=== PATIENT | female | born 1985 | race Caucasian/White ===

== ENCOUNTER 2017-07-11 09:52 | Inpatient (IN) | payer MEDICAID ==
[~2017-07-11] VITALS: Ht 160 cm; Wt 125.0 kg
[~2017-07-11 09:52] MED LIST: NONE PER PT
[2017-07-14] MEDS ORDERED: OXYTOCIN 30U/ 0.9% NaCL 500ML 500 ML IV PRN (21:25)
[2017-07-14] MEDS ORDERED: OXYTOCIN 30U/ 0.9% NaCL 500ML 500 ML IV ONE (21:25)
[2017-07-14] MEDS ORDERED: MISOPROSTOL 25 MCG TABLET VG PRN (21:30)
[2017-07-14] MEDS ORDERED: FENTANYL PF 100 MCG/2ML IVPush PRN (21:30)
[2017-07-14] MEDS ORDERED: TERBUTALINE 1 MG/ML, 1ML IVPush PRN ×2 (21:30)
[2017-07-14] MEDS ORDERED: FENTANYL PF 100 MCG/2ML IV PRN (21:30)
[2017-07-14] MEDS ORDERED: ONDANSETRON 2MG/ML, 2ML IVPush PRN (21:30)
[2017-07-14] MEDS ORDERED: MISOPROSTOL 25 MCG TABLET ONE (21:54)
[2017-07-14] MEDS ORDERED: OXYTOCIN 30U/ 0.9% NaCL 500ML 500 ML ONE (21:55)
[2017-07-14 21:58] LABS: HEMATOCRIT 35.6 % (34.6-47.8); HEMOGLOBIN 12.2 g/dL (11.7-16.4); WHITE BLOOD COUNT 8.3 x10^3/uL (3.4-10)
[2017-07-14] MEDS ORDERED: MISOPROSTOL 200 MCG TABLET ONE (22:15)
[2017-07-14] MEDS ORDERED: LIDOCAINE 1%, 20ML ONE (22:15)
[2017-07-14] MEDS ORDERED: NEWBORN KIT ONE (22:21)
[2017-07-14] MEDS ORDERED: PREN1TAB60 PO (23:10)
[2017-07-14] MEDS ORDERED: CALC200T3 PO (23:11)
[2017-07-15] MEDS: LACTATED RINGERS 1,000 ML IV SCH ×6 (02:31→21:25)
[2017-07-15] MEDS ORDERED: LIDOCAINE/PF 1.5%-EPI 1:200K, 30ML ONE (11:20)
[2017-07-15] MEDS ORDERED: FENTANYL/BUPIV./NS/PF 250 ML EPIDCONT ONE (11:21)
[2017-07-15] MEDS ORDERED: FENTANYL/BUPIV./NS/PF 250 ML EPIDCONT SCH (13:02)
[2017-07-15] MEDS ORDERED: LACTATED RINGERS 1,000 ML IVBOLUS PRN (13:30)
[2017-07-15] MEDS ORDERED: EPHEDRINE 50 MG/ML, 1ML IVPush PRN (13:30)
[2017-07-15] MEDS ORDERED: NALOXONE 0.4 MG/ML, 1ML IVPush PRN (13:30)
[2017-07-15 19:30] VITALS: BP 123/57
[2017-07-16] MEDS ORDERED: FENTANYL/BUPIV./NS/PF 250 ML EPIDCONT ONE (00:12)
[2017-07-16] MEDS ORDERED: TERBUTALINE 1 MG/ML, 1ML ONE (01:40)
[2017-07-16] MEDS: LACTATED RINGERS 1,000 ML IV SCH ×9 (05:02→23:27)
[2017-07-16] MEDS ORDERED: SODIUM CITRATE/CITRIC ACID 30 ML UDC ONE (07:01)
[2017-07-16] MEDS ORDERED: METOCLOPRAMIDE 5 MG/ML, 2ML ONE ×2 (07:01→08:21)
[2017-07-16] MEDS ORDERED: SODIUM CITRATE/CITRIC ACID 30 ML UDC PO ONE (07:30)
[2017-07-16] MEDS ORDERED: METOCLOPRAMIDE 5 MG/ML, 2ML IV ONE (07:30)
[2017-07-16] MEDS ORDERED: LACTATED RINGERS 1,000 ML IVBOLUS ONE (07:30)
[2017-07-16] MEDS: OXYTOCIN 30U/ 0.9% NaCL 500ML 500 ML IV SCH ×4 (08:05→18:05)
[2017-07-16] MEDS ORDERED: FENTANYL PF 100 MCG/2ML ONE ×3 (08:11→10:43)
[2017-07-16] MEDS ORDERED: OXYTOCIN 10 UNITS/ML, 1ML ONE (08:21)
[2017-07-16] MEDS ORDERED: EPHEDRINE 50 MG/ML, 1ML ONE (08:21)
[2017-07-16] MEDS ORDERED: KETOROLAC 30 MG/1 ML ONE (08:21)
[2017-07-16] MEDS ORDERED: CEFAZOLIN 1,000 MG ONE (08:21)
[2017-07-16] MEDS ORDERED: ONDANSETRON 2MG/ML, 2ML ONE (08:21)
[2017-07-16] MEDS ORDERED: DEXAMETHASONE 4 MG/ML, 1ML ONE (08:21)
[2017-07-16] MEDS ORDERED: CALCIUM CARBONATE 500 MG TAB.CHEW PO PRN (08:30)
[2017-07-16] MEDS ORDERED: PROMETHAZINE 25 MG/ML, 1ML IV PRN (08:30)
[2017-07-16] MEDS ORDERED: ONDANSETRON 2MG/ML, 2ML IV PRN (08:30)
[2017-07-16] MEDS ORDERED: ACETAMINOPHEN 325 MG TABLET PO PRN ×2 (08:30)
[2017-07-16] MEDS ORDERED: OXYcodone/APAP 5/325MG TABLET PO PRN (08:30)
[2017-07-16] MEDS ORDERED: HYDROmorphone 1 MG/ML, 1ML IV PRN (08:30)
[2017-07-16] MEDS ORDERED: HYDROcodone/APAP 7.5-325MG/15ML UDC PO PRN (08:30)
[2017-07-16] MEDS ORDERED: MISOPROSTOL 200 MCG TABLET PR PRN (08:30)
[2017-07-16] MEDS: KETOROLAC 30 MG/1 ML IV SCH ×3 (08:30→20:58)
[2017-07-16] MEDS ORDERED: EPHEDRINE 50 MG/ML, 1ML IVPush PRN (08:30)
[2017-07-16] MEDS ORDERED: LABETALOL 5MG/ML, 20ML IV PRN (08:30)
[2017-07-16] MEDS ORDERED: DIPH,PERTUSS(ACELL),TET VAC/PF NC IM-VACC PRN (08:30)
[2017-07-16] MEDS ORDERED: ONDANSETRON 2MG/ML, 2ML IVPush PRN (08:30)
[2017-07-16] MEDS ORDERED: MIDAZOLAM 1 MG/ML, 2ML IV PRN (08:30)
[2017-07-16] MEDS ORDERED: SIMETHICONE 80 MG CHEW TAB PO PRN (08:30)
[2017-07-16] MEDS ORDERED: hydrALAzine 20 MG/ML, 1ML IV PRN (08:30)
[2017-07-16] MEDS ORDERED: MEASLES,MUMPS&RUBELLA VACC/PF 0.5 ML SQ-VACC PRN (08:30)
[2017-07-16] MEDS ORDERED: OXYcodone 5 MG/5 ML ORAL.SOL UDC PO PRN (08:30)
[2017-07-16] MEDS ORDERED: MEPERIDINE/PF 25MG/0.5ML IVPush PRN (08:30)
[2017-07-16] MEDS ORDERED: ALBUTEROL/IPRATROPIUM 2.5MG/0.5MG, 3 ML NPPB PRN (08:30)
[2017-07-16] MEDS ORDERED: morphine SULFATE 10 MG/ML, 1ML IVPush PRN ×2 (08:30)
[2017-07-16] MEDS ORDERED: OXYTOCIN 30U/ 0.9% NaCL 500ML 500 ML ONE (09:36)
[2017-07-16] MEDS ORDERED: OXYcodone 5 MG/5 ML ORAL.SOL UDC ONE (10:42)
[2017-07-16] MEDS: FENTANYL PF 100 MCG/2ML IV PRN ×2 (10:47→10:56)
[2017-07-16 11:45] VITALS: BP 105/66
[2017-07-16] MEDS: PRENATAL VIT/IRON/FA 1 EACH TABLET PO SCH (12:00)
[2017-07-16] MEDS: OXYcodone/APAP 5/325MG TABLET PO PRN ×2 (14:56→18:57)
[2017-07-16 16:00] VITALS: BP 118/76
[2017-07-16 17:46] LABS: HEMATOCRIT 34.1 % (34.6-47.8); HEMOGLOBIN 11.8 g/dL (11.7-16.4); WHITE BLOOD COUNT 17.8 x10^3/uL (3.4-10)
[2017-07-16 20:00] VITALS: BP 120/66
[2017-07-16] MEDS: DOCUSATE 100 MG CAPSULE PO PRN (23:06)
[2017-07-17 00:05] VITALS: BP 112/72
[2017-07-17] MEDS: OXYcodone/APAP 5/325MG TABLET PO PRN ×4 (03:02→16:52)
[2017-07-17] MEDS: KETOROLAC 30 MG/1 ML IV SCH ×4 (03:02→21:13)
[2017-07-17] MEDS: OXYTOCIN 30U/ 0.9% NaCL 500ML 500 ML IV SCH ×4 (03:27→14:05)
[2017-07-17 05:00] VITALS: BP 107/50
[2017-07-17 07:21] VITALS: BP 116/79
[2017-07-17] MEDS: LACTATED RINGERS 1,000 ML IV SCH ×2 (07:27→15:27)
[2017-07-17] MEDS: DOCUSATE 100 MG CAPSULE PO PRN (07:59)
[2017-07-17] MEDS: PRENATAL VIT/IRON/FA 1 EACH TABLET PO SCH (09:00)
[2017-07-17 19:20] VITALS: BP 105/65
[2017-07-17] MEDS ORDERED: OXYcodone IR 5MG TABLET ONE (21:46)
[2017-07-17] MEDS ORDERED: OXYcodone IR 5MG TABLET PO PRN (22:00)
[2017-07-18] MEDS: OXYTOCIN 30U/ 0.9% NaCL 500ML 500 ML IV SCH ×3 (00:05→20:05)
[2017-07-18] MEDS: OXYcodone/APAP 10/325MG TABLET PO PRN ×5 (02:38→20:20)
[2017-07-18] MEDS: KETOROLAC 30 MG/1 ML IV SCH (04:36)
[2017-07-18 08:00] VITALS: BP 111/73
[2017-07-18] MEDS ORDERED: IBUP-1222 PO (08:53)
[2017-07-18] MEDS ORDERED: OXYC-302 PO (08:54)
[2017-07-18] MEDS ORDERED: DOCU-131 PO (08:55)
[2017-07-18] MEDS: PRENATAL VIT/IRON/FA 1 EACH TABLET PO SCH (09:00)
[2017-07-18] MEDS: DOCUSATE 100 MG CAPSULE PO PRN (09:42)
[2017-07-18] MEDS: IBUPROFEN 600 MG TABLET PO PRN ×3 (09:42→21:41)
[2017-07-18 20:00] VITALS: BP 126/80
[2017-07-19] MEDS: OXYcodone/APAP 10/325MG TABLET PO PRN ×2 (00:42→05:30)
[2017-07-19] MEDS: IBUPROFEN 600 MG TABLET PO PRN (05:30)
[2017-07-19] MEDS: OXYTOCIN 30U/ 0.9% NaCL 500ML 500 ML IV SCH (05:46)
[2017-07-19 08:00] VITALS: BP 116/72
[2017-07-19] MEDS: DOCUSATE 100 MG CAPSULE PO PRN (10:36)
[2017-07-19] MEDS: PRENATAL VIT/IRON/FA 1 EACH TABLET PO SCH (10:36)
== END 2017-07-19 16:12 | disposition home or self-care (01) | DRG 766 ==
LOC: LDIP 07-14 20:54 → 2NW 07-16 11:37
PROVIDERS: ADMIT Obstetrics & Gynecology; ATTEND Obstetrics & Gynecology
PROC: 10D00Z1 Extraction of Products of Conception, Low, Open Approach (ICD-10-PCS; principal; 2017-07-16)
DX: O48.0 Post-term pregnancy (principal); O64.0XX0 Obstructed labor due to incomplete rotation of fetal head, not applicable or unspecified; O62.1 Secondary uterine inertia; Z3A.40 40 weeks gestation of pregnancy; Z37.0 Single live birth
CPT/HCPCS: 36415; 82803; 85025; 86850; 86900; J0690; J1100; J1885; J2405; J3010; J3490; J2590; J2765; J3105; J7120

== ENCOUNTER 2018-05-29 09:11 | Day surgery (SDC) | payer MEDICAID ==
[~2018-05-29] VITALS: Ht 160 cm; Wt 109.6 kg
[~2018-05-29 09:11] MED LIST changes: +CALC200T3 PO; +DOCU-131 PO; +IBUP-1222 PO; +OXYC-302 PO; +PREN1TAB60 PO
[2018-05-29] MEDS ORDERED: CEFAZOLIN PMX 1GM/50ML 50 ML ONE (10:22)
[2018-05-29] MEDS ORDERED: CEFAZOLIN 1,000 MG in SODIUM CHLORIDE 0.9% 50 ML IV STA (10:49)
[2018-05-29 10:52] VITALS: BP 142/84
[2018-05-29] MEDS ORDERED: SODIUM CHLORIDE 0.9% 1,000 ML IV SCH (10:54)
[2018-05-29] MEDS ORDERED: CEFAZOLIN 1,000 MG in SODIUM CHLORIDE 0.9% 50 ML IV ONE (11:00)
[2018-05-29] MEDS ORDERED: FENTANYL PF 100 MCG/2ML ONE ×2 (11:19→11:26)
[2018-05-29] MEDS ORDERED: FLUMAZENIL 0.1 MG/1 ML, 5ML ONE (11:19)
[2018-05-29] MEDS ORDERED: MIDAZOLAM 1 MG/ML, 5ML ONE ×2 (11:19→11:26)
[2018-05-29] MEDS ORDERED: NALOXONE 1 MG/ML, 2ML ONE (11:20)
[2018-05-29] MEDS ORDERED: LIDOCAINE-MPF 2% ,5ML ONE ×2 (11:21→12:09)
== END 2018-05-29 14:00 ==
LOC: OUT 09:11
PROVIDERS: ATTEND Specialist
DX: Z45.2 Encounter for adjustment and management of vascular access device (principal); C82.90 Follicular lymphoma, unspecified, unspecified site; C77.3 Secondary and unspecified malignant neoplasm of axilla and upper limb lymph nodes; C77.4 Secondary and unspecified malignant neoplasm of inguinal and lower limb lymph nodes; D70.1 Agranulocytosis secondary to cancer chemotherapy; Z87.891 Personal history of nicotine dependence; Z98.890 Other specified postprocedural states
CPT/HCPCS: 36561; 76937; 77001; 99156; 99157; C1788; J0690; J1642; J2250; J3010; J3490; J2310

== ENCOUNTER → 2018-05-31 | Outpatient (CLI) | payer MEDICAID | END | disposition home or self-care (01) | LOC: CFH 07:45 | PROVIDERS: ATTEND Specialist | DX: C82.19 Follicular lymphoma grade II, extranodal and solid organ sites (principal); R59.0 Localized enlarged lymph nodes | CPT/HCPCS: 78815; 93306; A9552 ==

== ENCOUNTER → 2018-06-18 | Outpatient (CLI) | payer MEDICAID | END | disposition home or self-care (01) | LOC: CFH 11:57 | PROVIDERS: ATTEND Obstetrics & Gynecology | DX: N64.4 Mastodynia (principal); N63.20 Unspecified lump in the left breast, unspecified quadrant; R59.9 Enlarged lymph nodes, unspecified | CPT/HCPCS: 77066 ==

== ENCOUNTER 2020-06-18 05:40 | Inpatient (IN) | payer MEDICAID ==
[~2020-06-18] VITALS: Ht 160 cm; Wt 120.5 kg
[2020-06-18] MEDS: LACTATED RINGERS 1,000 ML IV SCH ×8 (06:35→23:38)
[2020-06-18] MEDS ORDERED: NEWBORN KIT ONE (06:51)
[2020-06-18] MEDS ORDERED: SODIUM CITRATE/CITRIC ACID 30 ML UDC ONE (06:51)
[2020-06-18] MEDS ORDERED: METOCLOPRAMIDE 5 MG/ML, 2ML ONE (06:51)
[2020-06-18] MEDS ORDERED: LACTATED RINGERS 1,000 ML IVBOLUS ONE (07:00)
[2020-06-18] MEDS ORDERED: METOCLOPRAMIDE 5 MG/ML, 2ML IV ONE (07:00)
[2020-06-18] MEDS ORDERED: SODIUM CITRATE/CITRIC ACID 30 ML UDC PO ONE (07:00)
[2020-06-18 07:04] LABS: BASOPHILS # (AUTO) 0.01 x10^3/uL (0-0.1); BASOPHILS % (AUTO) 0 % (0-1); EOSINOPHILS # (AUTO) 0.02 x10^3/uL (0-0.4); EOSINOPHILS % (AUTO) 0 % (1-7); LYMPHOCYTES # (AUTO) 0.84 x10^3/uL (1-3.4); LYMPHOCYTES % (AUTO) 10 % (22-44); MD NO; MEAN CORPUSCULAR HEMOGLOBIN 33.5 pg (27.0-34.8); MEAN CORPUSCULAR HGB CONC 33.4 g/dL (32.4-35.8); MEAN CORPUSCULAR VOLUME 100.2 fL (80-100); MEAN PLATELET VOLUME 6.3 fL (7.4-10.4); MONOCYTES # (AUTO) 0.38 x10^3/uL (0.2-0.8); MONOCYTES % (AUTO) 5 % (2-9); NEUTROPHILS # (AUTO) 6.93 x10^3/uL (1.8-6.8); NEUTROPHILS % (AUTO) 85 % (42-75); PLATELET COUNT 200 x10^3/uL (130-400); RED BLOOD COUNT 3.33 x10^6/uL (3.82-5.3); RED CELL DISTRIBUTION WIDTH 15.3 % (9.6-15.2)
[2020-06-18 07:13] VITALS: BP 94/51
[2020-06-18] MEDS ORDERED: OXYTOCIN 30U/ 0.9% NaCL 500ML 500 ML ONE (07:32)
[2020-06-18] MEDS ORDERED: MISOPROSTOL 200 MCG TABLET ONE (07:32)
[2020-06-18] MEDS ORDERED: FENTANYL PF 100 MCG/2ML ONE (07:42)
[2020-06-18] MEDS ORDERED: MORPHINE SULFATE 4 MG/ML, 1ML IVPush PRN (08:00)
[2020-06-18] MEDS ORDERED: ACETAMINOPHEN 325 MG TABLET PO PRN ×2 (08:00→09:30)
[2020-06-18] MEDS ORDERED: morphine SULFATE 10 MG/ML, 1ML IVPush PRN (08:00)
[2020-06-18] MEDS ORDERED: SIMETHICONE 80 MG CHEW TAB PO PRN (08:00)
[2020-06-18] MEDS ORDERED: ONDANSETRON 2MG/ML, 2ML IV PRN (08:00)
[2020-06-18] MEDS ORDERED: MISOPROSTOL 200 MCG TABLET PR PRN (08:00)
[2020-06-18] MEDS: KETOROLAC 30 MG/1 ML IV SCH ×3 (08:00→22:00)
[2020-06-18] MEDS ORDERED: OXYcodone/APAP 5/325MG TABLET PO PRN (08:00)
[2020-06-18] MEDS ORDERED: CEFAZOLIN 1,000 MG ONE ×2 (08:46)
[2020-06-18] MEDS ORDERED: PHENYLEPHRINE 10 MG/ML ONE (08:46)
[2020-06-18] MEDS ORDERED: EPHEDRINE 50 MG/ML, 1ML ONE ×2 (08:46→09:08)
[2020-06-18] MEDS ORDERED: OXYTOCIN 10 UNITS/ML, 1ML ONE ×2 (08:46)
[2020-06-18] MEDS ORDERED: ONDANSETRON 2MG/ML, 2ML ONE (08:47)
[2020-06-18] MEDS: PRENATAL VIT/IRON/FA 1 EACH TABLET PO SCH (09:00)
[2020-06-18] MEDS: OXYTOCIN 30U/ 0.9% NaCL 500ML 500 ML IV SCH ×2 (09:05→17:38)
[2020-06-18] MEDS ORDERED: KETOROLAC 30 MG/1 ML IVPush PRN (09:30)
[2020-06-18] MEDS ORDERED: EPHEDRINE 50 MG/ML, 1ML IVPush PRN (09:30)
[2020-06-18] MEDS ORDERED: DIPHENHYDRAMINE 50 MG/ML, 1ML IVPush PRN (09:30)
[2020-06-18] MEDS ORDERED: HALOPERIDOL 5 MG/ML IV PRN (09:30)
[2020-06-18] MEDS ORDERED: FENTANYL PF 100 MCG/2ML IV PRN (09:30)
[2020-06-18] MEDS ORDERED: OXYcodone 5 MG/5 ML ORAL.SOL UDC PO PRN (09:30)
[2020-06-18] MEDS ORDERED: PROMETHAZINE 25 MG/ML, 1ML IVPush PRN (09:30)
[2020-06-18] MEDS ORDERED: KETOROLAC 30 MG/1 ML ONE (10:20)
[2020-06-18] MEDS ORDERED: HYDROmorphone 2 MG/ML, 1ML ONE (10:41)
[2020-06-18] MEDS: HYDROmorphone 1 MG/ML, 1ML INJ IVPush PRN ×2 (10:43→11:14)
[2020-06-18 11:37] VITALS: BP 96/61
[2020-06-18] MEDS: OXYcodone/APAP 5/325MG TABLET PO PRN ×2 (15:45→20:34)
[2020-06-18 15:47] VITALS: BP 96/62
[2020-06-18 17:15] LABS: BASOPHILS % (AUTO) 0 % (0-1); EOSINOPHILS # (AUTO) 0.01 x10^3/uL (0-0.4); EOSINOPHILS % (AUTO) 0 % (1-7); LYMPHOCYTES # (AUTO) 0.82 x10^3/uL (1-3.4); LYMPHOCYTES % (AUTO) 12 % (22-44); MD NO; MEAN CORPUSCULAR HEMOGLOBIN 34.2 pg (27.0-34.8); MEAN CORPUSCULAR VOLUME 100.5 fL (80-100); MEAN PLATELET VOLUME 6.1 fL (7.4-10.4); MONOCYTES # (AUTO) 0.37 x10^3/uL (0.2-0.8); MONOCYTES % (AUTO) 5 % (2-9); NEUTROPHILS # (AUTO) 5.83 x10^3/uL (1.8-6.8); NEUTROPHILS % (AUTO) 83 % (42-75); PLATELET COUNT 189 x10^3/uL (130-400); RED BLOOD COUNT 3.06 x10^6/uL (3.82-5.3); RED CELL DISTRIBUTION WIDTH 15.4 % (9.6-15.2)
[2020-06-18 20:20] VITALS: BP 103/70
[2020-06-18] MEDS: DOCUSATE 100 MG CAPSULE PO PRN (20:33)
[2020-06-19 01:10] VITALS: BP 90/60
[2020-06-19] MEDS: OXYcodone/APAP 5/325MG TABLET PO PRN ×5 (01:56→17:50)
[2020-06-19] MEDS: OXYTOCIN 30U/ 0.9% NaCL 500ML 500 ML IV SCH ×3 (03:38→23:38)
[2020-06-19] MEDS: LACTATED RINGERS 1,000 ML IV SCH ×9 (03:38→23:38)
[2020-06-19 04:00] VITALS: BP 95/62
[2020-06-19] MEDS: KETOROLAC 30 MG/1 ML IV SCH ×4 (04:24→22:30)
[2020-06-19] MEDS: DOCUSATE 100 MG CAPSULE PO PRN (07:48)
[2020-06-19] MEDS: PRENATAL VIT/IRON/FA 1 EACH TABLET PO SCH (07:48)
[2020-06-19 07:55] VITALS: BP 95/61
[2020-06-19 12:00] VITALS: BP 98/62
[2020-06-19 19:39] VITALS: BP 108/75
[2020-06-19] MEDS: IBUPROFEN 600 MG TABLET PO PRN (23:36)
[2020-06-20] MEDS: KETOROLAC 30 MG/1 ML IV SCH (03:22)
[2020-06-20] MEDS: LACTATED RINGERS 1,000 ML IV SCH ×3 (05:10→09:38)
[2020-06-20] MEDS: IBUPROFEN 600 MG TABLET PO PRN ×2 (05:52→11:59)
[2020-06-20] MEDS: OXYcodone/APAP 5/325MG TABLET PO PRN (05:52)
[2020-06-20] MEDS: PRENATAL VIT/IRON/FA 1 EACH TABLET PO SCH (07:42)
[2020-06-20] MEDS: DOCUSATE 100 MG CAPSULE PO PRN (07:42)
[2020-06-20 07:55] VITALS: BP 88/57
[2020-06-20] MEDS: OXYTOCIN 30U/ 0.9% NaCL 500ML 500 ML IV SCH (09:38)
[2020-06-20] MEDS ORDERED: MEASLES,MUMPS&RUBELLA VACC/PF 0.5 ML SQ-VACC ONE (12:30)
== END 2020-06-20 13:54 | disposition home or self-care (01) | DRG 788 ==
LOC: LDIP 05:40 → 2NW 11:03
PROVIDERS: ADMIT Obstetrics & Gynecology; ATTEND Obstetrics & Gynecology
PROC: 10D00Z1 Extraction of Products of Conception, Low, Open Approach (ICD-10-PCS; principal; 2020-06-18)
PROC: 3E0234Z Introduction of Serum, Toxoid and Vaccine into Muscle, Percutaneous Approach (ICD-10-PCS; 2020-06-18)
DX: O34.211 Maternal care for low transverse scar from previous cesarean delivery (principal); O69.81X0 Labor and delivery complicated by cord around neck, without compression, not applicable or unspecified; Z37.0 Single live birth; Z3A.39 39 weeks gestation of pregnancy; Z85.72 Personal history of non-Hodgkin lymphomas
CPT/HCPCS: 36415; 85025; 86592; 86850; 86900; 87635; G0378; J0690; J1170; J1885; J2405; J3010; J2370; J2590; J2765; J7120

== ENCOUNTER 2020-06-28 16:43 | Emergency (ER) | payer MEDICAID ==
[~2020-06-28] VITALS: Ht 157.5 cm; Wt 118.3 kg
--- NOTE | 2020-06-28 17:36 | NUR ---
PT PLACED ON BP CUFF, PULSE OX. VSS. CALL LIGHT WITHIN REACH, WARM BLANKET PROVIDED.
[2020-06-28 17:39] LABS: BASOPHILS # (AUTO) 0.05 x10^3/uL (0-0.1); BASOPHILS % (AUTO) 1 % (0-1); EOSINOPHILS # (AUTO) 0.07 x10^3/uL (0-0.4); EOSINOPHILS % (AUTO) 1 % (1-7); LYMPHOCYTES # (AUTO) 1.23 x10^3/uL (1-3.4); LYMPHOCYTES % (AUTO) 17 % (22-44); MD NO; MEAN CORPUSCULAR HEMOGLOBIN 32.8 pg (27.0-34.8); MEAN CORPUSCULAR HGB CONC 33.3 g/dL (32.4-35.8); MEAN CORPUSCULAR VOLUME 98.5 fL (80-100); MEAN PLATELET VOLUME 6.8 fL (7.4-10.4); MONOCYTES # (AUTO) 0.34 x10^3/uL (0.2-0.8); MONOCYTES % (AUTO) 5 % (2-9); NEUTROPHILS # (AUTO) 5.63 x10^3/uL (1.8-6.8); NEUTROPHILS % (AUTO) 77 % (42-75); PLATELET COUNT 256 x10^3/uL (130-400); RED BLOOD COUNT 3.55 x10^6/uL (3.82-5.3); RED CELL DISTRIBUTION WIDTH 14.2 % (9.6-15.2)
[2020-06-28 17:57] LABS: ANION GAP 5 mmol/L (5-15); CALCIUM 8.6 mg/dL (8.5-10.1); CHLORIDE 113 mmol/L (98-107)
[2020-06-28 18:03] LABS: CREATININE 0.95 mg/dL (0.55-1.02)
--- NOTE | 2020-06-28 18:05 | NUR ---
PT UPDATED ON ADD ON LABS/UA. URINE COLLECTED/SENT TO LAB. CALL LIGHT WITHIN REACH.
[2020-06-28 18:10] LABS: BILIRUBIN, DIRECT 0.1 mg/dL (0.1-0.2)
[2020-06-28 18:13] LABS: MICROSCOPIC AUTO
[2020-06-28 18:13] LABS: BILIRUBIN,INDIRECT 0.2 mg/dL (0.0-2.0); BILIRUBIN,TOTAL 0.3 mg/dL (0.2-1.0)
--- NOTE | 2020-06-28 18:19 | NUR ---
ALL RESULTS BACK, PT FOR RECHECK.
--- NOTE | 2020-06-28 18:54 | NUR ---
ERP TO BEDSIDE. REPORT FROM INDERJIT STEPHENSON.
[2020-06-28 19:08] VITALS: BP 131/78
--- NOTE | 2020-06-28 19:17 | NUR ---
REPORT TO ABI JANSEN, TRANSFER OF CARE AT THIS TIME.
== END 2020-06-28 19:25 | disposition home or self-care (01) ==
LOC: ED 18:40
DX: R60.0 Localized edema (principal); R79.89 Other specified abnormal findings of blood chemistry; M79.662 Pain in left lower leg; M79.661 Pain in right lower leg
CPT/HCPCS: 36415; 80048; 80076; 81001; 83880; 85025; 93970; 99284